=== PATIENT | female | born 1965 | race Asian ===

== ENCOUNTER 2017-10-28 06:25 | Inpatient (IN) | END 2017-11-16 12:35 | disposition home or self-care (01) | DRG 164 ==

== ENCOUNTER 2017-11-19 12:17 | Inpatient (IN) | END 2017-11-22 18:20 | disposition home or self-care (01) | DRG 607 ==

== ENCOUNTER 2019-01-15 12:40 | Day surgery (SDC) | payer OTHER ==
[~2019-01-15] VITALS: Ht 162.6 cm; Wt 92.2 kg
[~2019-01-15 12:40] MED LIST: AMLO-145 PO; BEN25 PO; BTM.05O15 TOP; CARAS PO; CHOL100062 PO; HYDR-4011 PO; LANS30CA PO; LISI1TAB4 PO; METF500T PO; ONDA4TAB14 PO; RANI150T5 PO; SERT50TA6 PO; SIMV20TA20 PO; [UNRECOGNIZED DRUG - CODE] TOP
[2019-01-15 13:47] VITALS: Ht 162.6 cm; Wt 92.2 kg
[2019-01-15] MEDS ORDERED: ASPIRIN (14:03)
[2019-01-15] MEDS ORDERED: LISINOPRIL (14:03)
[2019-01-15] MEDS ORDERED: NORTRIPTYLINE (14:03)
[2019-01-15] MEDS ORDERED: METFORMIN (14:03)
[2019-01-15 14:57] VITALS: BP 124/77; PULSE 94; RESP 16
--- NOTE | 2019-01-15 16:42 | PREAC ---
Date/Time of Note Date/Time of Note DATE: 01/15/19 TIME: 16:41 Anesthesia Eval and Record Evaluation Time Pre-Procedure Interview DATE: 01/15/19 TIME: 16:41 Age 53 Sex female NPO: 8 hrs Preoperative diagnosis colon ca Planned procedure colonoscopy Past Medical History Past Medical History: Includes Cardio: HTN, Dyslipidemia Endo: Diabetes Musculoskeletal: Osteoarthritis Surgery & Anesthesia Issues No known issue Meds Anticoagulation: No Beta Ray within 24 hr: No Reason Beta Ray not given: Pt. not on B-Ray Reported Medications [Lisinopril] No Conflict Check 01/15/19 [Aspirin] No Conflict Check 01/15/19 [Metformin] No Conflict Check 01/15/19 [Nortriptyline] No Conflict Check 01/15/19 Cholecalciferol* (Vitamin D3*) 1,000 Unit Tablet, 2000 UNIT PO DAILY, TAB 06/05/16 Simvastatin (Simvastatin) 20 Mg Tablet, 20 MG PO QHS, #30 TAB 06/05/16 Amlodipine Besylate* (Amlodipine Besylate*) 5 Mg Tablet, 5 MG PO DAILY, #30 TAB 06/05/16 Discontinued Reported Medications Lisinopril/Hydrochlorothiazide (Lisinopril-Hctz 10-12.5 mg Tab) 1 Each Tablet, 1 EACH PO, TAB 06/05/16 Discontinued Scripts Hydrocodone/Acetaminophen (Menno 5-325 Tablet) 1 Each Tablet, 1 TAB PO Q6H PRN for PAIN, #7 TAB Prov:MARIA T YU DO 11/24/17 Diphenhydramine Hcl* (Benadryl*) 25 Mg Cap, 25 MG PO Q6H PRN for ITCHING, #60 CAP Prov:RAFFY FOOTE 11/22/17 Diphenhydramine HCl/Zinc Acet (Banophen Anti-Itch 2% Cream) 28 Gm Cream..g., 1 APPLIC TOP Q6H PRN for ITCHING, #1 TUB Prov:RAFFY FOOTE 11/22/17 Betamethasone Dipropionate* (Betamethasone Dipropionate*) 0.05% - 15 Gm Oint, 1 APPLIC TOP BID, #1 TUB Prov:RAFFY FOOTE 11/22/17 Sucralfate* (Carafate*) 1 Gm/10 Ml Susp, 1 GM PO QID for 30 Days, #120 BOTTLE Prov:RAFFY FOOTE 11/22/17 Ranitidine Hcl* (Ranitidine Hcl*) 150 Mg Tablet, 150 MG PO BID, #60 TAB 1 Refill Prov:RAFFY FOOTE 11/22/17 Lansoprazole* (Lansoprazole*) 30 Mg Capsule.dr, 30 MG PO BID@06,18 for 30 Days, #60 TAB 1 Refill Prov:RAFFY FOOTE 11/22/17 Ondansetron (Ondansetron Odt) 4 Mg Tab.rapdis, 4 MG PO Q6H PRN for NAUSEA AND/OR VOMITING, #20 TAB Prov:JULY SCHMITT 11/16/17 Metformin Hcl (Glucophage) 500 Mg Tablet, 500 MG PO BID WITH MEALS for 30 Days, #60 TAB Prov:JULY SCHMITT 11/16/17 Sertraline Hcl* (Sertraline Hcl*) 50 Mg Tablet, 50 MG PO DAILY for 30 Days, #30 TAB Prov:JULY SCHMITT 11/16/17 Meds reviewed: Yes Allergies Coded Allergies: doxycycline (Verified Allergy, Mild, 01/15/19) levofloxacin (Verified Allergy, Mild, 01/15/19) Allergies Reviewed: Yes Labs/Studies Labs Reviewed: Reviewed by anesthesiologist test: Negative Studies: ECG Pre-procedure Exam Last vitals Vital Signs Date Temp Pulse Resp B/P (MAP) Pulse Ox O2 O2 Flow FiO2 Time Delivery Rate 01/15/19 98.1 94 16 124/77 99 Non 14:57 (93) Rebreather Airway: Adequate mouth opening, Adequate thyromental dist Mallampati: Mallampati II Teeth: Normal Lung: Normal Heart: Normal ASA Physical Status ASA physical status: 3 Emergency: None Planned Anesthetic General/MAC: Mask, MAC Pre-operative Attestations Prior to commencing anesthesia and surgery, the patient was re-evaluated, there was verification of: *The patient's identity *The results of appropriate recent lab work and preoperative vital signs *The above evaluation not changing prior to induction *Anesthetic plan, risk benefits, alternative and complications discussed with patient/family; questions answered; patient/family understands, accepts and wishes to proceed. AYAD COKER Jan 15, 2019 16:42
[2019-01-15] MEDS ORDERED: LIDOCAINE 100 MG SYRINGE ONE (16:45)
[2019-01-15] MEDS ORDERED: PROPOFOL 40 ML ONE (16:45)
[2019-01-15] MEDS ORDERED: PROPOFOL 200 MG INJ ONE (16:45)
[2019-01-15 17:43] VITALS: BP 121/75; PULSE 96; RESP 16
--- NOTE | 2019-01-16 08:00 | PAC ---
Date/Time of Note Date/Time of Note DATE: 01/16/19 TIME: 08:00 Post-Anesthesia Notes Post-Anesthesia Note Last documented vital signs Vital Signs Date Temp Pulse Resp B/P (MAP) Pulse Ox O2 O2 Flow FiO2 Time Delivery Rate 01/15/19 96 16 121/75 97 Room Air 17:43 (90) 01/15/19 98.1 14:57 Activity: WNL Respiratory function: WNL Cardiovascular function: WNL Mental status: Baseline Pain reasonably controlled: Yes Hydration appropriate: Yes Nausea/Vomiting absent: Yes AYAD COKER Jan 16, 2019 08:00
== END 2019-01-15 18:48 | disposition home or self-care (01) ==
LOC: GIL 12:40
PROVIDERS: ATTEND Internal Medicine Gastroenterology
DX: Z12.11 Encounter for screening for malignant neoplasm of colon (principal); K64.8 Other hemorrhoids; E11.9 Type 2 diabetes mellitus without complications; I10 Essential (primary) hypertension; E78.5 Hyperlipidemia, unspecified; K57.30 Diverticulosis of large intestine without perforation or abscess without bleeding
CPT/HCPCS: 45378; 82962; J2001; Z7610